=== PATIENT | male | born 1975 | race African-American/Black ===

== ENCOUNTER 2016-05-04 23:20 | Emergency (ER) | payer SELFPAY ==
[~2016-05-04] VITALS: Ht 177.8 cm; Wt 99.8 kg
[2016-05-05 02:35] VITALS: BP 138/89
== END 2016-05-05 02:36 | disposition home or self-care (01) ==
LOC: ER 23:23
DX: R07.89 Other chest pain (principal); R73.09 Other abnormal glucose
CPT/HCPCS: 71010; 82962; 99283; A4606; Z7610

== ENCOUNTER 2016-10-03 01:01 | Emergency (ER) | payer SELFPAY ==
[~2016-10-03] VITALS: Ht 188 cm; Wt 99.8 kg
[2016-10-03 01:09] VITALS: BP 141/83
[2016-10-03] MEDS ORDERED: IBUPROFEN 400 MG TABLET ONE (01:27)
[2016-10-03] MEDS ORDERED: IBUPROFEN 400 MG TABLET PO ONE (01:30)
== END 2016-10-03 02:19 | disposition home or self-care (01) ==
LOC: ER 01:02
DX: M54.5 Low back pain (principal); V43.62XA Car passenger injured in collision with other type car in traffic accident, initial encounter; Y93.89 Activity, other specified; Y92.410 Unspecified street and highway as the place of occurrence of the external cause; Y99.8 Other external cause status
CPT/HCPCS: 72110; 99284; A4606; Z7610